=== PATIENT | female | born 1975 | race Two or more races ===

== ENCOUNTER 2017-07-12 09:48 | Emergency (ER) | payer OTHER ==
[2017-07-12] MEDS ORDERED: KETOROLAC TROMETHAMINE 30 MG/ML SOL IM ONE (10:09)
[2017-07-12] MEDS ORDERED: CYCLOBENZAPRINE 10 MG TAB PO ONE (10:09)
[2017-07-12] MEDS ORDERED: KETOROLAC TROMETHAMINE 30 MG/ML SOL ONE (10:10)
[2017-07-12] MEDS ORDERED: CYCLOBENZAPRINE 10 MG TAB ONE (10:10)
[2017-07-12] MEDS ORDERED: APAP/HYDROCODONE 325/5 TAB PO ONE (10:24)
[2017-07-12] MEDS ORDERED: APAP/HYDROCODONE 325/5 TAB ONE (10:26)
[2017-07-12 10:30] VITALS: RESP 16; TEMP 98
[2017-07-12 11:34] VITALS: BP 122/81; PULSE 73; O2SAT 98
== END 2017-07-12 11:32 | disposition home or self-care (01) | DRG 552 ==
LOC: ED 09:48
DX: M54.5 Low back pain (principal); M62.830 Muscle spasm of back
CPT/HCPCS: 96372; 99282; 99283; J1885; A9270-GY